=== PATIENT | female | born 1990 | race Caucasian/White ===

== ENCOUNTER → 2017-04-16 14:17 | Outpatient (CLI) | payer BC, SELFPAY ==
[2017-04-16 16:15] LABS: Absolute Lymphocyte Count 1.91 X10^3/ul (0.83-4.51); Absolute Neutrophil Count 8.5 X10^3/uL (2.0-7.7); Basophil# 0.01 X10^3/uL; Basophil% 0.1 % (0-1); Eosinophil# 0.06 X10^3/uL; Eosinophils% 0.5 % (0-5); Hematocrit 33.6 % (37-47); Hemoglobin 11.7 g/dl (12.0-15.0); Lymphocyte # 1.91 X10^3/ul (4.0); Mean Corp Hgb Conc 34.8 g/gl (32-36); Mean Corpuscular Hgb 31.9 pg (27.0-32.0); Mean Corpuscular Volume 91.6 fL (81-99); Mean Platelet Vol. 10.5 fl (6.2-12.0); Monocyte# 0.67 X10^3/uL; Neutrophil # 8.49 X10^3/uL (2.7-7.7); Neutrophil % 75.8 % (47-70); Platelet Count 178 K/mm3 (150-450); RBC Distribution Width CV 12.9 % (11.6-14.6); RBC Distribution Width SD 42.2 fl (35.1-43.9); Red Blood Count 3.67 M/mm3 (4.2-5.4); White Blood Count 11.2 K/mm3 (4.4-11.0)
[2017-04-16 16:16] LABS: POSITIVE COUNT NO; POSITIVE DIFFERENTIAL NO; POSITIVE MORPHOLOGY NO
[2017-04-16 16:47] LABS: Glucose Challenge Gest 1H 50g 161 mg/dL (70-140)
== END ==
PROVIDERS: Visit Provider Obstetrics & Gynecology
DX: Z34.90 Encounter for supervision of normal pregnancy, unspecified, unspecified trimester (principal)
CPT/HCPCS: 36415; 82950; 85025

== ENCOUNTER → 2017-04-24 06:51 | Outpatient (CLI) | payer BC, SELFPAY ==
[2017-04-24 08:13] LABS: Glucose GTT-Gestation. Fasting 80 mg/dL (<105)
[2017-04-24 09:57] LABS: Glucose GTT-Gestational 2 Hr 121 mg/dL (<165)
[2017-04-24 10:00] LABS: Glucose GTT-Gestational 1 Hr 155 mg/dL (<190)
[2017-04-24 11:11] LABS: Glucose GTT-Gestational 3 Hr 114 L (<145)
== END ==
PROVIDERS: Visit Provider Obstetrics & Gynecology
DX: O99.810 Abnormal glucose complicating pregnancy (principal); Z3A.00 Weeks of gestation of pregnancy not specified
CPT/HCPCS: 36415; 82951; 82952

== ENCOUNTER → 2017-06-04 18:58 | Outpatient (CLI) | payer BC, SELFPAY | PROVIDERS: Visit Provider Physician Assistant | DX: J02.9 Acute pharyngitis, unspecified (principal) | CPT/HCPCS: 87081 ==

== ENCOUNTER → 2017-06-26 17:48 | Outpatient (CLI) | payer BC, SELFPAY ==
[2017-06-26 19:01] LABS: Group B Strep DNA By PCR Negative (Negative); Internal Control PASS; Probe Check PASS; Specimen Processing Control PASS
== END ==
PROVIDERS: Visit Provider Obstetrics & Gynecology
DX: Z34.02 Encounter for supervision of normal first pregnancy, second trimester (principal)
CPT/HCPCS: 87081; 87653

== ENCOUNTER 2017-07-24 13:35 | Inpatient (IN) | payer BC, SELFPAY ==
[2017-07-24 13:33] LABS: ROM Internal Control Test YES-OK TO RESULT pt. (Internal QC)
[2017-07-24 13:35] LABS: ROM Patient Test POSITIVE (Negative)
[2017-07-24] MEDS: Lactated Ringers 1,000 ML 50 ML IV (14:45)
[2017-07-24 15:00] LABS: Hematocrit 38.6 % (37-47); Hemoglobin 13.5 g/dl (12.0-15.0); Mean Corpuscular Volume 88.5 fL (81-99); Mean Platelet Vol. 11.3 fl (6.2-12.0); Platelet Count 169 K/mm3 (150-450); RBC Distribution Width SD 44.8 fl (35.1-43.9); Red Blood Count 4.36 M/mm3 (4.2-5.4)
[2017-07-24 15:01] LABS: Scan Indicated on CBC? Y/N NO
[2017-07-24 15:10] VITALS: BMI 31.8
[2017-07-24] MEDS: Acetaminophen 500 MG Tablet 1000 MG PO (16:13)
[2017-07-24] MEDS: miSOPROStol 25 MCG TABLET PO ×2 (16:14→21:14)
[2017-07-24] MEDS: Mag Hydrox/Al Hydrox/Simeth 30 ML UDC PO (19:41)
[2017-07-24] MEDS: Acetaminophen 325 MG Tablet PO (21:26)
--- NOTE | 2017-07-24 22:11 | PCM.HP.OB ---
- Problem List (1) PROM (premature rupture of membranes) Status: Acute History Date of Admission: 07/24/17 Final MAURICE: 07/19/17 Gestational age: 40 Weeks and 5 Days History of this : This is a 27 year-old, G1, P 0, at 40 weeks gestational age prsents with PROM. she has had some contractions but is 1-2 cm with no cervical change. she has had an uncomplicated Medical History: Medical History (Last Reviewed 07/24/17 @ 11:34 by Anna Saunders) Polycystic disease, ovaries E28.2 Surgical History: Surgical History (Last Reviewed 07/24/17 @ 11:34 by Anna Saunders) History of hip surgery Z98.890 History of removal of ovarian cyst Z98.890, Z87.42 Allergies No Known Allergies Allergy (Verified 07/24/17 11:33) Home Medications: Home Medications calcium carbonate 333 mg-magnesium oxide 133 mg-zinc gluc 5 mg tablet tab PO 02/20/17 vitamin,calcium,jqgutnuo-fvuq-nikrn acid tablet 1 tab PO QDAY 02/20/17 hydroxyzine pamoate 50 mg capsule 50 mg PO TID-QID PRN #30 cap 04/10/17 Citalopram Hydrobromide [Citalopram HBr] 20 mg PO QDAY 07/24/17 Ranitidine HCl [Acid Control] 150 mg PO BID 07/24/17 Ranitidine HCl [Acid Control] 150 mg PO BID 07/24/17 Smoking Status: Never smoker Alcohol: None Number of Fetus(es): 1 Heart Tracins moderate variability reactive no decels category I tracing TOCO Analysis: iregular History Past Pregnancies: Past Pregnancies Delivery Date Name GA/Weeks Outcome Route Weight Infant Gender Labor Length Anesthesia Delivery Location Provider FOB Labs: Pregancy History 1 Elective abortions Hx Para Spontaneous abortions Hx # Term Pregnancies Ectopic pregnancies Hx # Pregnancies Multiple births # of living children OB Visit MAURICE Calculator Estimated Delivery Date 07/19/17 Based on Ultrasound Date 11/25/16 Current WG 40w 5d Number 1 Expected Delivery Route/Plan Specific Issue/Plans Initial OB labs 12/23/16 H.1 Platelets: 178 Type and Screen: A positive RPR: Neg Rubella: Immune HepBsAg: Neg HIV: Neg GC/Chlamydia: Neg/Neg Urine Culture: Neg HepC: GCT: Rhogam given: Cystic fibrosis carrier screenin-16 week testing Sequential Screen: NIPT screenin-20 week Anatomy Ultrasound: 26-28 week labs Hg: Platelets: GCT: tDAP given: Type and Screen: Rhogam given: 3hrGCT: 36 week labs GBS: negative testing serology normal NIPT boy MOMO [place] flu vaccine declined Expected Delivery Method: Spontaneous Vaginal Review of Systems Constitutional: Denies: Fever, Malaise Eyes: Denies: Blurred vision, Vision Change HEENT: Denies: Head Aches, Visual Changes Cardiovascular: Denies: Chest Pain, Palpitations Respiratory: Denies: Cough, Shortness of Breath, Wheezing Gastrointestinal: Denies: Abdominal Pain, Diarrhea, Nausea, Vomiting Genitourinary: Denies: Dysuria, Hematuria Gynecological: Reports: Vaginal discharge Musculoskeletal: Denies: Joint Pain, Muscle pain Skin: Denies: Lesions, Rash Neurological: Denies: Blurred vision, Focal weakness, Headaches Psychiatric: Denies: Anxiety, Depression Endocrine: Denies: Heat/ Cold Intolerance Hematologic/ Lymphatic: Denies: Easy Bruising, Easy Bleeding Physical Exam General: Alert, Cooperative, No apparent distress HEENT: Atraumatic, Normocephalic. Negative for: Thyromegaly, Lymphadenopathy Cardiovascular: Regular rate Lungs: Normal air movement Abdomen: Soft, Non Tender, Gravid Neurological: Deep Tendon Reflexes 2+/4 and Symmetrical, Neuro grossly intact. Negative for: Clonus ELECTRONIC TRANSACTION IMPLEMENTER: Normal external genitalia. Negative for: Vulvar lesions Estimated gestational size: Appropriate for gestational size Presentation: Cephalic Cervix Dilation (cm): 1.5 Station: -2 Effacement (%): 60 Assessment/Plan All Active Problems (Last Reviewed 07/24/17 @ 11:34 by Anna Saunders) PROM (premature rupture of membranes) (Acute) Abnormal glucose in , antepartum (Acute) Anxiety and depression (Acute) Segmental and somatic dysfunction of sacral region (Acute) Segmental and somatic dysfunction of thoracic region (Acute) Segmental and somatic dysfunction of cervical region (Acute) Segmental and somatic dysfunction of lumbar region (Acute) Supervision of normal (Acute) Bronchitis (Resolved) Pharyngitis (Resolved) Spider bite (Resolved) Tonsillolith (Resolved) This is a 27 year-old, at 40 weeks gestational age. PROM plan cytotec IOL secondary to PROM no signs of chorioamnionitis
--- NOTE | 2017-07-24 22:17 | HP.PCM_ITS ---
- Problem List (1) PROM (premature rupture of membranes) Status: Acute History Date of Admission: 07/24/17 Final MAURICE: 07/19/17 Gestational age: 40 Weeks and 5 Days History of this : This is a 27 year-old, G1, P 0, at 40 weeks gestational age prsents with PROM. she has had some contractions but is 1-2 cm with no cervical change. she has had an uncomplicated Medical History: Medical History (Last Reviewed 07/24/17 @ 11:34 by Anna Saunders) Polycystic disease, ovaries E28.2 Surgical History: Surgical History (Last Reviewed 07/24/17 @ 11:34 by Anna Saunders) History of hip surgery Z98.890 History of removal of ovarian cyst Z98.890, Z87.42 Allergies No Known Allergies Allergy (Verified 07/24/17 11:33) Home Medications: Home Medications calcium carbonate 333 mg-magnesium oxide 133 mg-zinc gluc 5 mg tablet tab PO 01/26 vitamin,calcium,cfkqwuow-ykvd-lrzhn acid tablet 1 tab PO QDAY 02/20/17 hydroxyzine pamoate 50 mg capsule 50 mg PO TID-QID PRN #30 cap 04/10/17 Citalopram Hydrobromide [Citalopram HBr] 20 mg PO QDAY 07/24/17 Ranitidine HCl [Acid Control] 150 mg PO BID 07/24/17 Ranitidine HCl [Acid Control] 150 mg PO BID 07/24/17 Smoking Status: Never smoker Alcohol: None Number of Fetus(es): 1 Heart Tracins moderate variability reactive no decels category I tracing TOCO Analysis: iregular History Past Pregnancies: Past Pregnancies Delivery Date Name GA/Weeks Outcome Route Weight Gender Labor Length Anesthesia Delivery Location Provider FOB Labs: Pregancy History 2 1 Elective abortions Hx Para Spontaneous abortions Hx # Term Pregnancies Ectopic pregnancies Hx # Pregnancies Multiple births # of living children OB Visit MAURICE Calculator 2 Estimated Delivery Date 07/19/17 Based on Ultrasound Date 11/25/16 Current WG 40w 5d Number 1 Expected Delivery Route/Plan Specific Issue/Plans Initial OB labs 12/23/16 H.1 Platelets: 178 Type and Screen: A positive RPR: Neg Rubella: Immune HepBsAg: Neg HIV: Neg GC/Chlamydia: Neg/Neg Urine Culture: Neg HepC: GCT: Rhogam given: Cystic fibrosis carrier screenin-16 week testing Sequential Screen: NIPT screenin-20 week Anatomy Ultrasound: 26-28 week labs Hg: Platelets: GCT: tDAP given: Type and Screen: Rhogam given: 3hrGCT: 36 week labs GBS: negative testing serology normal NIPT boy MOMO [place] flu vaccine declined Expected Delivery Method: Spontaneous Vaginal Review of Systems Constitutional: Denies: Fever, Malaise Eyes: Denies: Blurred vision, Vision Change HEENT: Denies: Head Aches, Visual Changes Cardiovascular: Denies: Chest Pain, Palpitations Respiratory: Denies: Cough, Shortness of Breath, Wheezing Gastrointestinal: Denies: Abdominal Pain, Diarrhea, Nausea, Vomiting Genitourinary: Denies: Dysuria, Hematuria Gynecological: Reports: Vaginal discharge Musculoskeletal: Denies: Joint Pain, Muscle pain Skin: Denies: Lesions, Rash Neurological: Denies: Blurred vision, Focal weakness, Headaches Psychiatric: Denies: Anxiety, Depression Endocrine: Denies: Heat/ Cold Intolerance Hematologic/ Lymphatic: Denies: Easy Bruising, Easy Bleeding Physical Exam General: Alert, Cooperative, No apparent distress HEENT: Atraumatic, Normocephalic. Negative for: Thyromegaly, Lymphadenopathy Cardiovascular: Regular rate Lungs: Normal air movement Abdomen: Soft, Non Tender, Gravid Neurological: Deep Tendon Reflexes 2+/4 and Symmetrical, Neuro grossly intact. Negative for: Clonus INDUSTRY SEGMENT SPECIALIST: Normal external genitalia. Negative for: Vulvar lesions Estimated gestational size: Appropriate for gestational size Presentation: Cephalic Cervix Dilation (cm): 1.5 Station: -2 Effacement (%): 60 Assessment/Plan All Active Problems (Last Reviewed 07/24/17 @ 11:34 by Anna Saunders) PROM (premature rupture of membranes) (Acute) Abnormal glucose in , antepartum (Acute) Anxiety and depression (Acute) Segmental and somatic dysfunction of sacral region (Acute) Segmental and somatic dysfunction of thoracic region (Acute) Segmental and somatic dysfunction of cervical region (Acute) Segmental and somatic dysfunction of lumbar region (Acute) Supervision of normal (Acute) Bronchitis (Resolved) Pharyngitis (Resolved) Spider bite (Resolved) Tonsillolith (Resolved) This is a 27 year-old, at 40 weeks gestational age. PROM plan cytotec IOL secondary to PROM no signs of chorioamnionitis
[2017-07-25] VITALS (11 sets, daily range): BP systolic 105–145; BP diastolic 55–91; PULSE 80–106; RESP 16; TEMP 36.4–37.7; O2SAT 97–100
[2017-07-25] MEDS: miSOPROStol 25 MCG TABLET PO ×3 (01:18→13:35)
[2017-07-25] MEDS: 0.9% Saline Lock 10 ML Syringe IV (02:31)
[2017-07-25] MEDS: Ondansetron 4 MG/2 ML Vial IV ×2 (07:42→17:58)
[2017-07-25] MEDS: Lactated Ringers 1,000 ML 50 ML IV ×3 (07:54→16:00)
[2017-07-25] MEDS: Mag Hydrox/Al Hydrox/Simeth 30 ML UDC PO (09:40)
--- NOTE | 2017-07-25 09:51 | PCM.PN.BLA ---
Progress Note patient still 2 cm doing well managing pain control. continue cytotec, labor support.
[2017-07-25] MEDS: oxyCODONE 5 MG Tablet PO ×2 (09:55→10:40)
[2017-07-25] MEDS: fentaNYL-bupivacaine (epidural) 100 ML BAG EPIDURAL (15:24)
[2017-07-25] MEDS: Terbutaline 1 MG/ML Vial 0.25 MG SC (17:42)
[2017-07-25] MEDS: Amnioinfusion- 0.9% NS 1,000 ML IV.SOLN. INTRA-UTER (17:51)
--- NOTE | 2017-07-25 18:10 | PCM.PN.BLA ---
Progress Note category II tracing starting at 1720 resolved with terbutaline and hands/knees, amnioinfusion started by 1750. now category I tracing with positive acceleration. will await return of ctx and tolerance to labor. /-
[2017-07-25] MEDS: Cefazolin 2 GM in 0.9% Normal Saline 100 ML IV (18:47)
--- NOTE | 2017-07-25 19:03 | RAD_ITS ---
STUDY: X-RAY - ABDOMEN/PELVIS REASON FOR EXAM: Female, 27 years old. Emergent . No intraparenchymal was done. TECHNIQUE: Portable abdomen COMPARISON: None. FINDINGS: No instrument is visualized. At L2-L3 left of midline there is a curvilinear indeterminate 5.9 cm rounded density visualized. There is an unremarkable bowel gas pattern. There is no demonstrated free abdominal air. The visualized liver, spleen and kidneys are grossly normal in size and morphology. Normal soft tissue structures. Normal visualized osseous structures. RAD/Abdomen Single View (Portable) IMPRESSION: No retained instrument identified. Indeterminate curvilinear density within the mid abdomen left of midline, this may be on the patient for this is an unlikely retained foreign body. Electronically Signed: Angelica Yusuf MD at 20:37 EDT Tel , Service support ,
--- NOTE | 2017-07-25 19:31 | OP.PCM_ITS ---
Problem List (1) PROM (premature rupture of membranes) Status: Acute Report of Operation Date of Procedure: 07/25/17 Pre-Operative Diagnosis: prom, category iii tracing Post-Operative Diagnosis: same Surgery/Procedure Performed:: stat primary low transverse csection chemical operations specialist: Leila Lopez Type of Anesthesia:: Spinal Special Medications: ancef azitrhomycicn Specimen's removed: male infant vertex 8 lbs 12 ounces apgars 8 and 9 Drains: leavitt Estimated Blood Loss (mL): 800 Fluids Replaced: crystalloid Description of Procedure: patient presented at 40w5d with PROM- underwent IOL with cytotec, after almost 24 hours developed a category II tracing which resolved with terbutaline, position changes, and amnioinfusion, but when contractions resumed she developed a category III tracing with prolonged deceleration into the 70s-90s therefore a decision for a primary csection was made due to being remote from delivery. epidrual was dosed and found to be adequate. The patient was placed in the dorsal supine position with leftward tilt. Patient was prepped and draped in the normal sterile fashion. Pfannenstiel skin incision was made with the scalpel and carried through to the underlying layer of fascia with the scalpel. Fascia was nicked in the midline and the incision extended laterally. The peritoneum was entered digitally. The incision was stretched and a low transverse uterine incision was made with the scalpel. The infant's head was delivered atraumatically followed by the anterior and posterior shoulders without complication the rest of the infant delivered. The cord was clamped and cut after delayed cord clamping and the infant was handed off to awaiting nurse. The placenta was delivered spontaneously immediately following and was noted to be intact and have a three-vessel cord. The uterus was exteriorized cleared of all clots and debris, and the incision was closed in a double layer closure using #1 Monocryl. The uterus was returned to the maternal abdomen and gutters were cleared of all clots and debris. The ovaries and fallopian tubes were noted to be within normal limits. The peritoneum was closed with 3-0 Monocryl in a running fashion. Fascia was closed with 0 PDS in a running fashion. Subcutaneous tissue was copiously irrigated and the skin was closed with 3-0 Monocryl in a subcuticular fashion. Mepilex dressing were applied without complication. Patient was taken to recovery in stable condition. Grafts/Implants Used: none - Complications none
[2017-07-26] VITALS (12 sets, daily range): BP systolic 109–145; BP diastolic 59–88; PULSE 80–107; RESP 16–18; TEMP 36.6–38; O2SAT 98–100
[2017-07-26] MEDS: Ketorolac 30 MG/ML Syringe IV ×4 (00:13→18:13)
[2017-07-26] MEDS: Lactated Ringers 1,000 ML 100 ML IV (00:14)
[2017-07-26 06:51] LABS: Hematocrit 31.1 % (37-47); Hemoglobin 10.4 g/dl (12.0-15.0); Mean Corp Hgb Conc 33.4 g/gl (32-36); Mean Corpuscular Hgb 30.1 pg (27.0-32.0); Mean Corpuscular Volume 90.1 fL (81-99); Mean Platelet Vol. 10.5 fl (6.2-12.0); Platelet Count 129 K/mm3 (150-450); RBC Distribution Width CV 14.5 % (11.6-14.6); RBC Distribution Width SD 47.6 fl (35.1-43.9); Red Blood Count 3.45 M/mm3 (4.2-5.4); White Blood Count 11.8 K/mm3 (4.4-11.0)
[2017-07-26 07:03] LABS: Scan Indicated on CBC? Y/N NO
--- NOTE | 2017-07-26 12:54 | PCM.PN.OB ---
Patient Problems: Active and Suspected Problems (Last Reviewed 07/24/17 @ 11:34 by Anna Saunders) PROM (premature rupture of membranes) (Acute) Subjective: doing well pain controlled - Physical Exam General: Alert, Oriented x3 Vital Signs Temp Pulse Resp BP Pulse Ox 97.9 F 80 18 119/69 98 07/26/17 07:30 07/26/17 07:30 07/26/17 09:00 07/26/17 07:30 07/26/17 09:00 Oxygen Delivery Method Room Air Weight: 191 lb 5.78 oz Body Mass Index (BMI) 31.8 Intake and Output for Last 24 Hours 07/24/17 07/25/17 07/26/17 23:59 23:59 23:59 Intake Total 6438 / 6438 2121 / 2121 Output Total 4000 / 4000 1200 / 1200 Balance 2438 / 2438 921 / 921 Laboratory Tests Past 24 Hrs 07/26/17 06:15 WBC 11.8 H RBC 3.45 L Hgb 10.4 L Hct 31.1 L MCV 90.1 MCH 30.1 MCHC 33.4 RDW 14.5 RDW Differential 47.6 H Plt Count 129 L MPV 10.5 Medical Necessity - Tobacco Use Smoking Status: Never smoker Assessment/Plan All Active Problems (Last Reviewed 07/24/17 @ 11:34 by Anna Saunders) PROM (premature rupture of membranes) (Acute) Abnormal glucose in , antepartum (Acute) Anxiety and depression (Acute) Segmental and somatic dysfunction of sacral region (Acute) Segmental and somatic dysfunction of thoracic region (Acute) Segmental and somatic dysfunction of cervical region (Acute) Segmental and somatic dysfunction of lumbar region (Acute) Supervision of normal (Acute) Bronchitis (Resolved) Pharyngitis (Resolved) Spider bite (Resolved) Tonsillolith (Resolved) s/p LTCS routine care ambulate
[2017-07-26] MEDS: 0.9% Saline Lock 10 ML Syringe IV (18:14)
[2017-07-27] MEDS: Ketorolac 30 MG/ML Syringe IV ×2 (00:20→06:41)
[2017-07-27] MEDS: Senna/Docusate Sodium 1 Tablet PO ×2 (00:30→09:01)
[2017-07-27 01:45] VITALS: BP 118/69; PULSE 99; RESP 16; TEMP 36.8; O2SAT 100
[2017-07-27] MEDS: 0.9% Saline Lock 10 ML Syringe IV ×2 (06:41→12:51)
[2017-07-27] MEDS: oxyCODONE 5 MG Tablet PO ×4 (09:02→22:17)
[2017-07-27 09:05] VITALS: BP 121/80; PULSE 95; RESP 20; TEMP 36.7; O2SAT 98
[2017-07-27 14:20] VITALS: BP 130/78; PULSE 81; TEMP 36.9; O2SAT 99
[2017-07-27 20:00] VITALS: BP 139/88; PULSE 108; RESP 18; TEMP 37.6; O2SAT 98
--- NOTE | 2017-07-27 21:15 | PCM.PN.OB ---
Patient Problems: Active and Suspected Problems (Last Reviewed 07/24/17 @ 11:34 by Anna Saunders) PROM (premature rupture of membranes) (Acute) Subjective: pain controlled no CP SOB N V - Physical Exam General: Alert, Oriented x3 Vital Signs Temp Pulse Resp BP Pulse Ox 99.6 F H 108 H 18 139/88 H 98 07/27/17 20:00 07/27/17 20:00 07/27/17 20:00 07/27/17 20:00 07/27/17 20:00 Oxygen Delivery Method Room Air Weight: 191 lb 5.78 oz Body Mass Index (BMI) 31.8 Intake and Output for Last 24 Hours 07/25/17 07/26/17 07/27/17 23:59 23:59 23:59 Intake Total 6438 / 6438 3221 / 3221 Output Total 4000 / 4000 3400 / 3400 1000 / 1000 Balance 2438 / 2438 -179 / -179 -1000 / -1000 Medical Necessity - Tobacco Use Smoking Status: Never smoker Assessment/Plan All Active Problems (Last Reviewed 07/24/17 @ 11:34 by Anna Saunders) PROM (premature rupture of membranes) (Acute) Abnormal glucose in , antepartum (Acute) Anxiety and depression (Acute) Segmental and somatic dysfunction of sacral region (Acute) Segmental and somatic dysfunction of thoracic region (Acute) Segmental and somatic dysfunction of cervical region (Acute) Segmental and somatic dysfunction of lumbar region (Acute) Supervision of normal (Acute) Bronchitis (Resolved) Pharyngitis (Resolved) Spider bite (Resolved) Tonsillolith (Resolved) s/p LTCS routine care ambulate doing well
[2017-07-27] MEDS: Naproxen 250 MG Tablet PO (21:16)
[2017-07-28 02:00] VITALS: BP 132/69; PULSE 96; RESP 18; TEMP 36.7; O2SAT 98
[2017-07-28] MEDS: oxyCODONE 5 MG Tablet PO ×4 (02:58→17:12)
[2017-07-28 07:30] VITALS: BP 118/69; PULSE 89; RESP 16; TEMP 36.5
[2017-07-28] MEDS: Senna/Docusate Sodium 1 Tablet PO (07:42)
--- NOTE | 2017-07-28 08:38 | NURSING ---
2227 office nurse marina notified of rash will notify dr garcia and let me know if she wants to order any cream
[2017-07-28] MEDS: Naproxen 250 MG Tablet PO ×2 (08:49→17:04)
[2017-07-28] MEDS: Hydrocortisone 2.5% Crm 1 APPLIC TOPICAL (10:06)
--- NOTE | 2017-07-28 10:54 | PCM.PN.OB ---
Patient Problems: Active and Suspected Problems (Last Reviewed 07/24/17 @ 11:34 by Anna Saunders) PROM (premature rupture of membranes) (Acute) Subjective: doing well no complaints - Physical Exam General: Alert, Oriented x3 Vital Signs Temp Pulse Resp BP Pulse Ox 97.7 F L 89 16 118/69 98 07/28/17 07:30 07/28/17 07:30 07/28/17 07:30 07/28/17 07:30 07/28/17 02:00 Oxygen Delivery Method Room Air Weight: 191 lb 5.78 oz Body Mass Index (BMI) 31.8 Intake and Output for Last 24 Hours 07/26/17 07/27/17 07/28/17 23:59 23:59 23:59 Intake Total 3221 / 3221 Output Total 3400 / 3400 1000 / 1000 Balance -179 / -179 -1000 / -1000 Medical Necessity - Tobacco Use Smoking Status: Never smoker Assessment/Plan All Active Problems (Last Reviewed 07/24/17 @ 11:34 by Anna Saunders) PROM (premature rupture of membranes) (Acute) Abnormal glucose in , antepartum (Acute) Anxiety and depression (Acute) Segmental and somatic dysfunction of sacral region (Acute) Segmental and somatic dysfunction of thoracic region (Acute) Segmental and somatic dysfunction of cervical region (Acute) Segmental and somatic dysfunction of lumbar region (Acute) Supervision of normal (Acute) Bronchitis (Resolved) Pharyngitis (Resolved) Spider bite (Resolved) Tonsillolith (Resolved) s/p LTCS routine care ambulate doing well
--- NOTE | 2017-07-28 10:57 | DCINST_ITS ---
Discharge Diet: No Restrictions Discharge Activity: May Not Drive - for 2 weeks, May not drive while taking narcotic pain medications., May Shower, May Take a Tub Bath - in 7 days May resume sexual activity in: 4-6 weeks Lifting Restrictions: 20 pounds Additional Activity Instructions:: Nothing in the vagina for 4-6 weeks. You may return to work/school in 6 weeks. Call your doctor if your incision/area has: Continuous Slow Oozing, Sudden Increased Bleeding, Increased Pain/ Swelling, Increased Redness, Foul Smelling Discharge Call your doctor if you observe: Fever of 101 or Higher, Using more than one pad per hour - for 2 hours Suture Line Care: Avoid Pulling/Pushing, Avoid Pinching/Bending Cleanse incision/area with: Keep Dressing Clean & Dry Additional Instructions: If you experience any of the following, contact your healthcare provider. * Bleeding that soaks a pad every hour for 2 hours * Fever 100.4 or higher * Unrelieved incision or abdominal pain * Swelling, redness, discharge or bleeding from your incision or episiotomy site * Your incision begins to separate * Problems urinating (including inability to urinate or burning while urinating) . * Visual changes * Severe headache * Flu-like symptoms * Pain or redness in one of both of your breasts * Pain, warmth, tenderness or swelling in your legs, especially the calf area * Frequent nausea and vomiting * Symptoms of depression or anxiety If you experience any of the following, call 911 or go to the nearest Emergency Room. * Chest pain * Problems breathing * Seizure activity * Partial or complete paralysis of a body part, slurred speech, weakness or drooping of the face, or a sudden inability to walk or hold your balance Allergies/Adverse Reactions: Allergies No Known Allergies Allergy (Verified 07/24/17 11:33) Medications to take at Discharge calcium carbonate 333 mg-magnesium oxide 133 mg-zinc gluc 5 mg tablet tab PO 01/26 vitamin,calcium,shggovkn-beof-bxced acid tablet 1 tab PO QDAY 02/20/17 hydroxyzine pamoate 50 mg capsule 50 mg PO TID-QID PRN #30 cap 04/10/17 Citalopram Hydrobromide [Citalopram HBr] 20 mg PO QDAY 07/24/17 Ranitidine HCl [Acid Control] 150 mg PO BID 07/24/17 Ranitidine HCl [Acid Control] 150 mg PO BID 07/24/17 Naproxen [Naprosyn] 250 - 500 mg PO Q8H PRN PRN #30 tab 07/28/17 Oxycodone HCl/Acetaminophen [Percocet 5-325] 1 - 2 tablet PO Q4H PRN PRN 7 Days #28 tablet 07/28/17 The following prescriptions were given: Oxycodone HCl/Acetaminophen [Percocet 5-325] 1 - 2 tablet PO Q4H PRN PRN 7 Days #28 tablet PRN Reason: Moderate-Severe pain Naproxen [Naprosyn] 250 - 500 mg PO Q8H PRN PRN #30 tab PRN Reason: MILD PAIN Follow-Up: Call to make an appointment with your doctor for an incision check in 1-2 weeks. You will also need a 6 week post- follow up appointment. Please Follow Up With: Darby Zamora MD - Call to make an appointment for an incision check in 1-2 [phone] When: You will need a post- check in 6 weeks. Primary Care Physician: Care Physician,No Primary [Primary Care Provider] -
[2017-07-28 14:00] VITALS: BP 122/72; PULSE 95; RESP 16; TEMP 36.7
--- NOTE | 2017-07-28 17:12 | NURSING ---
infant and maternal bracelet numbers match; infant placed in car seat per parents dc to home
--- NOTE | 2017-08-07 02:38 | PCM.DC.SUM ---
Discharge Date and Diagnosis Date of Admission: 07/24/17 Date of Discharge: 07/28/17 Hospital Course and Treatment Consultations 07/24/17 13:52 Consult: Anesthesia Routine Comment: Reason For Exam: LABOR Operations: - - ltcs Summary of Care Provided: The patient is a 27 year old F presented SROM and was induced proceeded to dilate and develop NRFHTs so had a primary cs and routine recovery Discharge Diet: No Restrictions Discharge Activity: May Not Drive - for 2 weeks, May not drive while taking narcotic pain medications., May Shower, May Take a Tub Bath - in 7 days May resume sexual activity in: 4-6 weeks Additional Activity Instructions:: Nothing in the vagina for 4-6 weeks. You may return to work/school in 6 weeks. Call your doctor if your incision/area has: Continuous Slow Oozing, Sudden Increased Bleeding, Increased Pain/ Swelling, Increased Redness, Foul Smelling Discharge Call your doctor if you observe: Fever of 101 or Higher, Using more than one pad per hour - for 2 hours Suture Line Care: Avoid Pulling/Pushing, Avoid Pinching/Bending Cleanse incision/area with: Keep Dressing Clean & Dry Home Medications: Medications to take at Discharge calcium carbonate 333 mg-magnesium oxide 133 mg-zinc gluc 5 mg tablet tab PO 02/20/17 vitamin,calcium,klfezedm-rwdg-zojcr acid tablet 1 tab PO QDAY 02/20/17 hydroxyzine pamoate 50 mg capsule 50 mg PO TID-QID PRN #30 cap 04/10/17 Citalopram Hydrobromide [Citalopram HBr] 20 mg PO QDAY 07/24/17 Ranitidine HCl [Acid Control] 150 mg PO BID 07/24/17 Ranitidine HCl [Acid Control] 150 mg PO BID 07/24/17 Naproxen [Naprosyn] 250 - 500 mg PO Q8H PRN PRN #30 tab 07/28/17 Oxycodone HCl/Acetaminophen [Percocet 5-325] 1 - 2 tablet PO Q4H PRN PRN 7 Days #28 tablet 07/28/17 Following Prescrptions Were Given to Patient: Oxycodone HCl/Acetaminophen [Percocet 5-325] 1 - 2 tablet PO Q4H PRN PRN 7 Days #28 tablet PRN Reason: Moderate-Severe pain Naproxen [Naprosyn] 250 - 500 mg PO Q8H PRN PRN #30 tab PRN Reason: MILD PAIN Primary Care Physician: Care Physician,No Primary [Primary Care Provider] - Please Follow Up With: Darby Zamora MD - Call to make an appointment for an incision check in 1-2 [phone] When: You will need a post- check in 6 weeks. Medical Necessity - Tobacco Use Smoking Status: Never smoker Meaningful Use Info Meaningful Use Diagnoses (Choose all that apply): None applicable
== END 2017-07-28 17:20 | disposition home or self-care (01) | DRG 766 ==
LOC: WPOUT 13:41
PROVIDERS: Admitting Provider Obstetrics & Gynecology; Visit Provider Obstetrics & Gynecology
DX: O42.02 Full-term premature rupture of membranes, onset of labor within 24 hours of rupture (principal); O48.0 Post-term pregnancy; Z3A.40 40 weeks gestation of pregnancy; Z37.0 Single live birth
CPT/HCPCS: 59025; 59050; 74018; 84112; 85027; 86850; 86900; 99218; J7030; J7120; A4216; G0378; J2405

== ENCOUNTER 2017-07-29 15:15 | Outpatient (CLI) | payer BC, SELFPAY | END 2017-07-29 16:30 | disposition home or self-care (01) | LOC: WPOUT 15:42 → WP 15:42 | PROVIDERS: Visit Provider Obstetrics & Gynecology | DX: O92.79 Other disorders of lactation (principal) | CPT/HCPCS: 96152 ==

== ENCOUNTER 2017-10-07 15:00 | Outpatient (CLI) | payer BC, SELFPAY | END 2017-10-07 15:15 | disposition home or self-care (01) | LOC: WPOUT 15:01 → WP 15:02 | PROVIDERS: Visit Provider Obstetrics & Gynecology | DX: O92.79 Other disorders of lactation (principal) | CPT/HCPCS: 96152 ==

== ENCOUNTER → 2017-11-02 18:00 | Outpatient (CLI) | payer BC, SELFPAY | PROVIDERS: Referring Provider Physician Assistant Surgical; Visit Provider Physician Assistant Surgical | DX: J02.9 Acute pharyngitis, unspecified (principal) | CPT/HCPCS: 87081 ==

== ENCOUNTER → 2018-09-29 | Outpatient (REF) | payer BC, SELFPAY ==
[2018-08-02 08:36] VITALS: BMI 29.9
== END | disposition home or self-care (01) ==
LOC: HPRAD 07:54
PROVIDERS: Referring Provider Chiropractor; Visit Provider Chiropractor
DX: M99.03 Segmental and somatic dysfunction of lumbar region (principal); M99.04 Segmental and somatic dysfunction of sacral region
CPT/HCPCS: 72110

== ENCOUNTER → 2018-10-19 | Outpatient (CLI) | payer BC, SELFPAY ==
[2018-10-07 14:26] VITALS: BMI 29.9
--- NOTE | 2018-10-19 08:01 | US_ITS ---
STUDY: RENAL ULTRASOUND - COMPLETE REASON FOR EXAM: Female, 28 years old. Flank pain TECHNIQUE: Ultrasound evaluation of the kidneys was performed with real-time and static mobley-scale imaging. COMPARISON: None. FINDINGS: RIGHT KIDNEY: Normal location of the right kidney, which is normal in size. The right kidney measures 9.7 x 4.8 x 5.0 cm. There is a normal cortex of the right kidney. The renal cortex measures 1.6 cm. There is no right renal mass or cyst. There are no right renal calculi. There is no right hydronephrosis. DISTAL RIGHT URETER: There is non-visualization of the distal right ureter. There is no demonstrated right ureterovesical junction calculus. There is a visualized right ureteral jet. LEFT KIDNEY: Normal location of the left kidney, which is normal in size. The left kidney measures 10.1 x 4.6 x 4.7 cm. There is a normal cortex of the left kidney. The renal cortex measures 1.6 cm. There is no left renal mass or cyst. There are no left renal calculi. There is no left hydronephrosis. DISTAL LEFT URETER: There is non-visualization of the distal left ureter. There is no demonstrated left ureterovesical junction calculus. There is a visualized left ureteral jet. BLADDER: The distended urinary bladder has a volume of 291 ml. . There is a normal wall thickness of the distended urinary bladder. There is no demonstrated mass within the urinary bladder. There are no demonstrated bladder calculi. US/Kidney and Bladder IMPRESSION: Normal ultrasound of the kidneys and urinary bladder. Electronically Signed: Niall Dean MD at 17:59 EDT , Service support ,
[2018-10-19 08:03] LABS: Bacteria 0 SEEN /hpf (None Seen); Mucous, Urine 0 SEEN /hpf (<or=2+); White Blood Cells 0 SEEN /hpf (0-5)
[2018-10-19 08:15] LABS: Absolute Lymphocyte Count 1.71 X10^3/uL (0.83-4.51); Absolute Neutrophil Count 3.9 X10^3/uL (2.0-7.7); Basophil# 0.02 X10^3/uL; Basophil% 0.3 % (0-1); Eosinophil# 0.06 X10^3/uL; Hemoglobin 13.7 g/dL (12.0-15.0); Lymphocyte # 1.71 X10^3/ul (4.0); Lymphocyte % 27.7 % (19-41); Mean Corp Hgb Conc 33.4 g/dL (32-36); Mean Corpuscular Hgb 29.7 pg (27.0-32.0); Mean Corpuscular Volume 88.9 fL (81-99); Mean Platelet Vol. 10.7 fl (6.2-12.0); Monocyte# 0.45 X10^3/uL; Monocyte% 7.3 % (0-10); NRBC Flagged by Analyzer 0 % (0-5); Neutrophil # 3.92 X10^3/uL (2.7-7.7); Neutrophil % 63.5 % (47-70); Platelet Count 191 K/mm3 (150-450); RBC Distribution Width CV 12.2 % (11.6-14.6); RBC Distribution Width SD 39.8 fl (35.1-43.9); Red Blood Count 4.61 M/mm3 (4.2-5.4); White Blood Count 6.2 K/mm3 (4.4-11.0)
[2018-10-19 08:49] LABS: Anion Gap 5 (5-15); BUN 15 mg/dL (7-18); BUN/Creat Ratio 13.9 RATIO (10-20); Calcium,Total 9.1 mg/dL (8.5-10.1); Chloride 107 mmol/L (98-107); Creatinine, Serum 1.08 mg/dL (0.55-1.02); EST Glomerular Filtration Rate 65 mL/min (>60); Est Glom Filt Rate - Afr Amer 79 mL/min (>60); Glucose 95 mg/dL (74-106); Sodium Level 138 mmol/L (136-145)
[2018-10-19 09:04] LABS: Color, Urine Yellow (Yellow); Glucose, Dipstick Normal (Normal); Ketone-Dipstick Negative (Negative); Leukocyte Esterase-Dipstick Negative /ul (Negative); Nitrite-Dipstick Negative (Negative); Occult Blood-Urine 10 /ul (Negative); Protein-Dipstick Negative (Negative); Urine Bilirubin Dipstick Negative (Negative); Urine Clarity Sl. Cloudy (Clear); Urine Urobilinogen Normal (Normal)
[2018-10-19 09:17] LABS: Red Blood Cells-Urine 0-5 SEEN /hpf (0-5); Squamous Epithelial Cells - UA 0-5 SEEN /hpf (5-10)
== END | disposition home or self-care (01) ==
LOC: US 08:00
PROVIDERS: Family Provider Internal Medicine; PCP Internal Medicine; Referring Provider Internal Medicine; Visit Provider Internal Medicine
DX: R35.0 Frequency of micturition (principal); R10.9 Unspecified abdominal pain
CPT/HCPCS: 36415; 76770; 80048; 81001; 85025

== ENCOUNTER → 2018-11-09 | Outpatient (CLI) | payer BC, SELFPAY ==
[2018-11-09 08:58] VITALS: BMI 29.7
[2018-11-09 12:54] LABS: Vitamin B12 480 pg/mL (211-911)
[2018-11-09 13:21] LABS: T4 Free Direct 0.75 ng/dL (0.76-1.46); Thyroid Stim Hormone (TSH) 1.11 uIU/mL (0.358-3.74)
== END | disposition home or self-care (01) ==
LOC: BIMLAB 09:26
PROVIDERS: Family Provider Internal Medicine; PCP Internal Medicine; Visit Provider Internal Medicine
DX: F41.8 Other specified anxiety disorders (principal)
CPT/HCPCS: 36415; 82607; 84439; 84443